=== PATIENT | female | born 1940 | race Caucasian/White ===

== ENCOUNTER 2020-10-18 16:02 | Emergency (ER) | payer MEDICARE, OTHER ==
[~2020-10-18] VITALS: Ht 167.6 cm; Wt 79.8 kg
[~2020-10-18 16:02] MED LIST: LEVO25TA2; ZOLP5TAB2
--- NOTE | 2020-10-18 16:22 | NUR ---
L SIDED BODY TINGLING SENSATION ON AND OFF SINCE FRIDAY. PATIENT A/OX4, BREATHING EVEN AND UNLABORED, NO SOB NOTED, AMBULATORY WITH STEADY GAIT. NO DISTRESS NOTED. NEEDS ATTENDED.
--- NOTE | 2020-10-18 16:33 | NUR ---
DR. ISLAS AT BEDSIDE FOR EVAL.
[2020-10-18] MEDS ORDERED: ZOLP10TA2 PO (16:34)
[2020-10-18] MEDS ORDERED: LEVO75TA7 PO (16:34)
[2020-10-18] MEDS ORDERED: ESTR1TAB17 PO (16:34)
[2020-10-18 16:54] LABS: BASOPHILS % (AUTO) 0.6 % (0.0-2.0); EOSINOPHILS % (AUTO) 1.1 % (0.0-6.0); HEMATOCRIT 41 % (33-45); HEMOGLOBIN 13.7 g/dL (11.5-14.8); LYMPHOCYTES # (AUTO) 2.3 /CMM (0.8-4.8); LYMPHOCYTES % (AUTO) 35.6 % (20.0-44.0); MEAN CORPUSCULAR HGB CONC 33 g/dl (31.0-36.0); MEAN CORPUSCULAR VOLUME 92 fL (82-100); MONOCYTES # (AUTO) 0.5 /CMM (0.1-1.30); MONOCYTES % (AUTO) 7.2 % (2.0-12.0); NEUTROPHILS # (AUTO) 3.6 /CMM (1.8-8.9); NEUTROPHILS % (AUTO) 55.5 % (43.0-81.0); PLATELET COUNT (AUTO) 281 /CMM (150-450); RED BLOOD CELL COUNT(AUTO) 4.51 MIL/uL (4.0-5.2); WHITE BLOOD COUNT (AUTO) 6.5 K/uL (4.3-11.0)
[2020-10-18 17:09] LABS: ALANINE AMINOTRANSFERASE 24 U/L (12-78); ALBUMIN 3.5 g/dL (3.4-5.0); ALKALINE PHOSPHATASE 83 U/L (46-116); ASPARTATE AMINOTRANSFERASE 21 U/L (15-37); BILIRUBIN,DIRECT 0.1 mg/dL (0.0-0.2); BILIRUBIN,TOTAL 0.4 mg/dL (0.2-1.0); CALCIUM, SERUM 9.2 mg/dL (8.5-10.1); CARBON DIOXIDE 29 mmol/L (21-32); CHLORIDE 103 mmol/L (98-107); CREATININE 0.7 mg/dL (0.6-1.3); GLUCOSE 98 mg/dL (74-106); POTASSIUM 4.3 mmol/L (3.5-5.1); SODIUM SERUM 138 mmol/L (136-145); TOTAL PROTEIN, SERUM 7.3 g/dL (6.4-8.2); UREA NITROGEN, BLOOD 12 mg/dL (7-18)
[2020-10-18 17:43] VITALS: BP 123/73
== END 2020-10-18 17:44 | disposition home or self-care (01) ==
LOC: ER 16:13
DX: R20.2 Paresthesia of skin (principal); R19.7 Diarrhea, unspecified; E03.9 Hypothyroidism, unspecified; G47.00 Insomnia, unspecified; Z90.710 Acquired absence of both cervix and uterus; Z98.890 Other specified postprocedural states; Z79.899 Other long term (current) drug therapy
CPT/HCPCS: 36415; 70450-TC; 80048-TC; 80076-TC; 83735-TC; 84484-TC; 85025-TC